=== PATIENT | female | born 1935 | race Hispanic/Latino ===

== ENCOUNTER → 2019-01-10 | Day surgery (SDC) | payer MEDICARE, OTHER ==
--- NOTE | 2019-01-08 12:11 | Diagnostic Imaging Report ---
EXAMINATION: CHEST 2 VIEWS INDICATION: Pre-operative COMPARISON: None FINDINGS: LINES/TUBES:None LUNGS:The lungs are well-inflated. No focal consolidation or pulmonary edema. PLEURA:No pleural effusion or pneumothorax. MEDIASTINUM:The cardiomediastinal silhouette appears normal in size and shape. Atherosclerotic calcifications of the thoracic aorta. BONES/SOFT TISSUES:No acute osseous injury. Mild degenerative changes of the visualized spine. ABDOMEN:No free air under the diaphragm. IMPRESSION: No focal pneumonia or pulmonary edema. Signed by: Swathi Daniels MD on 01/08/2019 12:07 PM
[2019-01-08 12:33] LABS: BASOPHILS % 0.2 % (0.0-1.0); EOSINOPHILS # (AUTO) 0.1 (0.0-0.4); HEMATOCRIT 36.8 % (34.2-44.1); LYMPHOCYTES # (AUTO) 2.1 (1.0-3.2); LYMPHOCYTES % 45.5 % (18.0-39.1); MEAN CORPUSCULAR HEMOGLOBIN 30.4 pg (28-32); MEAN CORPUSCULAR HGB CONC 32.6 g/dL (31-35); MEAN CORPUSCULAR VOLUME 93.2 fL (81-99); MONOCYTES # (AUTO) 0.3 (0.2-0.8); MONOCYTES % 6.2 % (4.4-11.3); NEUTROPHILS # (AUTO) 2.1 (2.1-6.9); NEUTROPHILS % 45.9 % (38.7-80.0); PLATELET COUNT 239 x10e3/uL (140-360); RED BLOOD COUNT 3.95 x10e6/uL (3.6-5.1); RED CELL DISTRIBUTION WIDTH 13.5 % (11.7-14.4)
[~2019-01-10] MED LIST: ACYCLOVIR800 MG PO; ALENDRONATE SOD70 MG PO; CAPTOPRIL25 MG PO; CARBIDOPA-LEVO1 EACH PO; CEFTRIAXONE SOD 1 GM/NS 50 ML 50 ML IV ONE; CHOL MED; HERPES MED; IOPAMIDOL 610MG/1ML 300 MG/ML VIAL IV ONE; LIDOCAINE HCL 2% LOCAL INJ 5 ML SDV VIAL INJ ONE; PANTOPRAZOLE SO40 MG PO; PROPOFOL IV EMULSION 10 MG/ML 20 ML VIAL ONE; SEVOFLURANE INHAL SOLN 250 ML PEN BTL ONE; SIMVASTATIN20 MG PO; VITAMIN B-121000 MC1 PO
--- OUTSIDE RECORDS SUMMARY | 2019-01-10 08:29 | XMS REPORT ---
[facility] Address Unknown Phone Unavailable Care Team Providers Care Organ Grinder Name Role Phone BAYLEE WU Unavailable Unavailable Problems This patient has no known problems. Allergies, Adverse Reactions, Alerts This patient has no known allergies or adverse reactions. Medications This patient has no known medications. Results Test Description Test Time Test Comments Text Results Atomic Results Result Comments CHEST 2 VIEWS 2019-01-08 12:05:00 [place] [address] Patient Name: YING OBANDO MR #: [id number] : 1935 Age/Sex: 83/F Req #: [id number] Adm Physician: Ordered by: BAYLEE WU MD Report #: [id number] Location: OR Room/Bed: Procedure: [id number] DX/CHEST 2 VIEWS Exam Date: 01/08/19 Exam Time: 1130 REPORT STATUS: Signed EXAMINATION: CHEST 2 VIEWS INDICATION: Pre-operative COMPARISON: None FINDINGS: LINES/TUBES:None LUNGS:The lungs are well-inflated. No focal consolidation or pulmonary edema. PLEURA:No pleural effusion or pneumothorax. MEDIASTINUM:The cardiomediastinal silhouette appears normal in size and shape. Atherosclerotic calcifications of the thoracic aorta. BONES/SOFT TISSUES:No acute osseous injury. Mild degenerative changes of the visualized spine. ABDOMEN:No free air under the diaphragm. IMPRESSION: No focal pneumonia or pulmonary edema. Signed by: Katiana Daniels MD on 01/08/2019 12:07 PM Dictated By: KATIANA DANIELS MD 06 Transcribed By: MARY on 01/08/191206 COPY TO: BAYLEE WU MD
[2019-01-10 11:10] VITALS: BP 153/83
--- NOTE | 2019-01-10 22:30 | Operative Report ---
DATE OF PROCEDURE: 01/10/2019 SURGEON: Norman Cabral MD UROLOGIC OPERATIVE REPORT PREOPERATIVE DIAGNOSES: 1. Multiple chronic urinary tract infections. 2. Clinical signs and symptoms of interstitial cystitis. POSTOPERATIVE DIAGNOSES: 1. Multiple chronic urinary tract infections. 2. Clinical signs and symptoms of interstitial cystitis with grade 2 cystocele. PROCEDURES: 1. Cystourethroscopy with hydrodistention (entirely separate procedure for the clinical signs of interstitial cystitis without hematuria). 2. Cystourethroscopy with left ureteral catheterization and left retrograde pyelogram (separate procedure for multiple chronic urinary tract infections). 3. Cystourethroscopy with right ureteral catheterization and right retrograde pyelogram (separate procedure for multiple chronic urinary tract infections). 4. Supervision of fluoroscopy. 5. Interpretation of retrograde pyelography. ANESTHESIA: General. ESTIMATED BLOOD LOSS: Minimal. COMPLICATIONS: None. INDICATIONS FOR PROCEDURE: Ms. Gillis is an 83-year-old female with multiple chronic urinary tract infections. She and I had a long discussion about alternatives, risks, and benefits of doing nothing, cystoscopy, IVP, retrograde pyelograms, and ultrasounds. She voiced understanding of the options, alternatives, the risks and benefits, and she elected to proceed. PROCEDURE IN DETAIL: After informed consent was obtained, the patient was taken to the operative suite, placed supine on the operating table. She underwent general anesthesia by the Anesthesia Service. She was placed in the dorsal lithotomy position, sterilely prepped and draped for cystoscopy. A 21-Zimbabwean cystoscope was inserted per urethra after noticing a grade 2 cystocele and positive vaginal atrophy. Panendoscopy of bladder revealed no tumors, no stones. Both ureteral orifices were in normal anatomic location and position and were seen to efflux clear urine. Hydrodistention was performed with a capacity of 800 mL. There were positive glomerulations. There were no Hunner's ulcer seen. Bilateral retrograde pyelograms were performed, which were normal. The bladder was drained. The patient was awakened from anesthesia and transported to recovery room in excellent condition with no untoward effects noted. Supervision of fluoroscopy and interpretation of retrograde pyelography: I was present for the entire procedure and supervised the use of fluoroscopy. There was no radiologist present for the entire procedure. Attention was turned towards the left and right ureteral orifices, which were catheterized with an 8-Zimbabwean cone-tipped catheter. In retrograde fashion, contrast was injected revealing delicate ureters, delicate pelvocaliceal systems, no evidence of filling defects, no evidence of hydronephrosis. IMPRESSION: Normal retrograde pyelograms. MD CARLOS Mead/JOSE MIGUEL /[id number]
== END | disposition home or self-care (01) ==
LOC: OR 08:20
PROVIDERS: ATTEND Urology
DX: N30.10 Interstitial cystitis (chronic) without hematuria (principal); K21.9 Gastro-esophageal reflux disease without esophagitis; G20 Parkinson's disease; E78.5 Hyperlipidemia, unspecified; I10 Essential (primary) hypertension; N28.1 Cyst of kidney, acquired; R31.29 Other microscopic hematuria; N81.10 Cystocele, unspecified; N95.2 Postmenopausal atrophic vaginitis; Z87.440 Personal history of urinary (tract) infections; Z88.1 Allergy status to other antibiotic agents; Z01.810 Encounter for preprocedural cardiovascular examination; Z01.812 Encounter for preprocedural laboratory examination; Z01.811 Encounter for preprocedural respiratory examination
CPT/HCPCS: 36415; 52260; 71046; 74420; 85025; 93005; J0696; J2001; J2704; Q9967